=== PATIENT | female | born 2000 | race Two or more races ===

== ENCOUNTER 2023-08-22 17:41 | Emergency (ER) | payer OTHER ==
[~2023-08-22] VITALS: Ht 144.8 cm; Wt 73.5 kg
[2023-08-22] MEDS ORDERED: CYCL-839 PO (22:00)
[2023-08-22] MEDS ORDERED: HYDR-4902 PO (22:00)
[2023-08-22] MEDS ORDERED: AML5T PO (22:00)
[2023-08-22 23:02] VITALS: BP 144/89; PULSE 82; RESP 18; TEMP 98.9; O2SAT 99
== END 2023-08-22 23:04 | disposition home or self-care (01) ==
LOC: ER 17:41
DX: S13.8XXA Sprain of joints and ligaments of other parts of neck, initial encounter (principal); S00.83XA Contusion of other part of head, initial encounter; M62.838 Other muscle spasm; X58.XXXA Exposure to other specified factors, initial encounter; Y93.89 Activity, other specified; Y92.89 Other specified places as the place of occurrence of the external cause; Y99.8 Other external cause status
CPT/HCPCS: 70450; 72125